=== PATIENT | male | born 1950 | race Hispanic/Latino ===

== ENCOUNTER 2017-08-12 17:59 | Emergency (ER) | payer BC, OTHER ==
[2017-08-12 18:18] VITALS: O2SAT 97
[2017-08-12] MEDS ORDERED: LIDOCAINE 2% 5 ML VIAL ONE (20:18)
[2017-08-12] MEDS ORDERED: CHLORHEXIDINE GLUCONATE 4 % 15 ML UD TOP ONE (20:25)
[2017-08-12] MEDS ORDERED: NEOMYCIN-BACITRACIN-POLYMYXIN 0.9 GM UD TOP ONE (22:27)
--- NOTE | 2017-08-12 22:31 | ED.PDOC ---
History of Present Illness - General Chief Complaint: Laceration Stated Complaint: Laceration to R forearm Time Seen by Provider: 08/12/17 21:57 Source: patient Exam Limitations: no limitations - History of Present Illness Initial Comments: PT WAS PULLING DOWN A PIECE OF STEEL TO CUT AND IT FELL AND SICED HIS R FOREARM. TETANUS UPDATED 4 YR AGO. Timing/Duration: just prior to arrival Severity: moderate Location: extremities Improving Factors: nothing Worsening Factors: nothing Associated Symptoms: denies symptoms Allergies/Adverse Reactions: Allergies NO KNOWN ALLERGY Allergy (Verified 08/12/17 20:04) Home Medications: Ambulatory Orders Amlodipine Besylate 5 mg PO HS 10/16/12 Aspirin [[place] Chewable Low Dose] 81 mg PO AM 10/16/12 Losartan Potassium 100 mg PO HS 10/16/12 Metformin HCl 500 mg PO TID 10/16/12 Metoprolol Tartrate 100 mg PO AM 10/16/12 Triamterene & Hydrochlorothiaz [Maxzide-25] 0.5 tab PO AM 10/16/12 glipiZIDE [Glucotrol] 5 mg PO BIDAC #0 tab 10/17/12 Cephalexin Monohydrate [Keflex] 500 mg PO BID #14 cap 08/12/17 Review of Systems - Review of Systems Constitutional: States: no symptoms reported EENTM: States: no symptoms reported Respiratory: States: no symptoms reported Cardiology: States: no symptoms reported Gastrointestinal/Abdominal: States: no symptoms reported Genitourinary: States: no symptoms reported Musculoskeletal: States: no symptoms reported Skin: States: see HPI, lesions. Denies: rash Neurological: States: no symptoms reported Endocrine: States: no symptoms reported Hematologic/Lymphatic: States: no symptoms reported All other Systems: Reviewed and Negative Past Medical History (General) - Patient Medical History Hx Seizures: No Hx Stroke: No Hx Asthma: No Hx of COPD: No Hx Cardiac Disorders: Yes - Stents Hx Congestive Heart Failure: No Hx Pacemaker: No Hx Hypertension: Yes Hx Diabetes: Yes Hx MRSA: No - Vaccination History Hx Tetanus, Diphtheria Vaccination: Yes Hx Influenza Vaccination: Yes - 2017 Hx Pneumococcal Vaccination: No - Social History Hx Tobacco Use: No Hx Alcohol Use: No Hx Substance Use: No Hx Physical Abuse: No Hx Emotional Abuse: No Family Medical History - Family History Father Living Status: Cause of : old age Physical Exam - Physical Exam General Appearance: Alert, Well Hydrated Eyes, Ears, Nose, Throat Exam: PERRL/EOMI, normal ENT inspection Neck: full range of motion, normal inspection Extremity: normal range of motion, normal capillary refill Neurologic: no motor/sensory deficits, alert, normal mood/affect Skin Exam: warm/dry, normal color Skin Problem Location: upper extremities Skin Character: lesion - R MEDIAL FOREARM Lymphatic: no adenopathy Progress - Progress Progress: 08/12/17 22:29 R FOREARM 2.0 CM LAC, FULL THICKNESS. NIDDM, THUS RX KEFLEX PPX. 08/12/17 22:32 Procedures - Laceration/Wound Repair Right Distal Arm Wound Length (cm): 2.0 Wound's Depth, Shape: superficial - FULL THICKNESS THROUGH SKIN, INTO SUBQ ADIPOSE BUT NOT MUSCLE. Wound Explored: clean Irrigated w/ Saline (cc's): 50 Betadine Prep?: No - HIBICLENZ Anesthesia: 1% Lidocaine Volume Anesthetic (cc's): 7 Wound Debrided: minimal Wound Repaired With: sutures Suture Size/Type: 3:0, nylon Number of Sutures: 1 - RUNNING UNINTERRUPTED Layer Closure?: No Sterile Dressing Applied?: Yes Splint Applied?: No Sling Applied?: No Departure - Departure Clinical Impression: Laceration of right forearm Disposition: Discharge to Home or Self Care Condition: Good Departure Forms: ED Discharge - Pt. Copy, Patient Portal Self Enrollment Diet: resume usual diet Activity: increase activity as tolerated Referrals: TAMARA KNAPP [Primary Care Provider] - 1-2 Weeks Prescriptions: Cephalexin Monohydrate [Keflex] 500 mg PO BID #14 cap Home Medications: Ambulatory Orders Amlodipine Besylate 5 mg PO HS 10/16/12 Aspirin [[place] Chewable Low Dose] 81 mg PO AM 10/16/12 Losartan Potassium 100 mg PO HS 10/16/12 Metformin HCl 500 mg PO TID 10/16/12 Metoprolol Tartrate 100 mg PO AM 10/16/12 Triamterene & Hydrochlorothiaz [Maxzide-25] 0.5 tab PO AM 10/16/12 glipiZIDE [Glucotrol] 5 mg PO BIDAC #0 tab 10/17/12 Cephalexin Monohydrate [Keflex] 500 mg PO BID #14 cap 08/12/17 Additional Instructions: Please see your doctor in 10 - 12 days for suture removal. Please cleanse twice per day with soap and water, apply bacitracin antibiotic ointment, and cover with a band aid.
[2017-08-12 22:47] VITALS: BP 154/78; TEMP 98.2
== END 2017-08-12 22:47 | disposition home or self-care (01) ==
LOC: ER 17:59
DX: S51.811A Laceration without foreign body of right forearm, initial encounter (principal); I10 Essential (primary) hypertension; E11.9 Type 2 diabetes mellitus without complications; Z95.5 Presence of coronary angioplasty implant and graft; Z79.82 Long term (current) use of aspirin; Z79.899 Other long term (current) drug therapy; W45.8XXA Other foreign body or object entering through skin, initial encounter; Y93.89 Activity, other specified; Y92.9 Unspecified place or not applicable

== ENCOUNTER → 2017-12-12 | Outpatient (CLI) | payer BC ==
--- NOTE | 2017-12-12 10:48 | US ---
EXAM DESCRIPTION: Renal: Ultrasound. CLINICAL HISTORY: CHRONIC KIDNEY DISEASE, STAGE3 COMPARISON: Bilateral renal arterial Doppler evaluation on the same visit. TECHNIQUE: Transcutaneous scanning: Two-dimensional and Doppler modes. FINDINGS: Right kidney measures 9.6 x 5.4 x 5.2 cm; mid-renal cortical thickness normal . Minimally increased No hydronephrosis No echogenic stones. Mildly lobulated contour of the kidney with no perinephric fluid. Normal vascularity. Proximal ureter not visualized. Left kidney measures 9.6 x 5.2 x 4.9 cm; mid-renal cortical thickness normal. Minimally increased No hydronephrosis. No echogenic stones. Mildly lobulated contour of the kidney with no perinephric fluid. Normal vascularity.. Proximal ureter not visualized. Urinary bladder was visualized. Prevoid volume 61.8 mL. Prostate gland impressing on the base of the bladder measures 3.6 x 3.8 x 3.5 cm heterogeneous low echoes. Ureteral jet in the bladder seen bilaterally by Doppler. No post void volume. Abdominal aorta diameter(cm): Proximal - 2.0 Mid - 1.7 Distal - 1.6. IMPRESSION: 1. Bilateral kidneys minimally small with normal cortical thickness and mild increased echogenicity. Lobulated contours bilaterally. No hydronephrosis or perinephric fluid. Ureters not seen. 2. Urinary bladder contains small volume. Bilateral ureteral jets were detected in the bladder. Prostate gland with minimal impression on the base of the urinary bladder. Patient unable to void. 3. No abdominal aortic aneurysm. Electronically signed by: Brian Pinto MD 12/12/2017 10:46 AM CDT
== END ==
LOC: US 07:54
PROVIDERS: ATTEND Internal Medicine
DX: N18.3 Chronic kidney disease, stage 3 (moderate) (principal)

== ENCOUNTER → 2019-01-20 | Outpatient (CLI) | payer BC ==
--- NOTE | 2019-01-21 15:43 | US ---
EXAM DESCRIPTION: Carotid Duplex: ULTRASOUND. CLINICAL HISTORY: 68 years Male CAROTID BRUIT COMPARISON: None. TECHNIQUE: Transcutaneous scanning utilizing joshi-scale and Doppler modes to evaluate the bilateral carotid systems and vertebral arteries. Percentage of diameter of stenosis or no stenosis recorded will be based upon NASCET criteria. FINDINGS: Peak systolic/end diastolic (CM-Sec) CCA Right 98/5 Left 78/10. ICA Right proximal 110/19, distal 71/17. Left proximal 63/18, Distal 77/11. Vertebral Right 49/7 Left 44/14. ECA (PS Only) Right 178 left 100. ICA/CCA peak systolic ratio: Right 1.1 Left 1.0 ICA/CCA end diastolic ratio: Right 4.0 Left 1.1 Vertebral arteries: antegrade flow. Comments Comments: Atherosclerotic calcification bilateral carotid bifurcations. Mid right bulb: Area stenosis 38%, diameter stenosis 30%. Left mid CCA bulb: Area stenosis 28%, diameter stenosis 20%. IMPRESSION: 1. Doppler evaluation of the bilateral carotid systems and vertebral arteries shows 50-69% stenosis in the right ICA but this is not concordant with diameter or area stenosis measured on grayscale technique. 2. Moderate amount of plaque seen in the carotid arteries bilaterally. Bilateral vertebral arteries showed antegrade-cephalad flow. Electronically signed by: Brian Pinto MD 01/21/2019 3:41 PM PROFESSOR OF ART HISTORY
== END ==
LOC: US 15:46
PROVIDERS: ATTEND Emergency Medicine
DX: I65.23 Occlusion and stenosis of bilateral carotid arteries (principal); R09.89 Other specified symptoms and signs involving the circulatory and respiratory systems

== ENCOUNTER 2020-02-17 06:31 | Day surgery (SDC) | payer OTHER ==
[2020-02-17] MEDS ORDERED: SODIUM CHLORIDE 0.9% 50 ML VIAL INJ ONE (06:32)
[2020-02-17] MEDS ORDERED: PROPOFOL 200 MG/20 ML VIAL IV ONE (06:32)
[2020-02-17] MEDS ORDERED: PHENYLEPHRINE INJ 1ML 10 MG/ML VIAL IV ONE (06:32)
[2020-02-17] MEDS ORDERED: MAGNESIUM SULFATE INJ 1 GM/2 ML VIAL IVPB ONE (06:32)
[2020-02-17] MEDS ORDERED: LIDOCAINE 1% 10 ML VIAL INJ ONE (06:32)
[2020-02-17] MEDS ORDERED: DEXAMETHASONE INJ 10 MG/ML VIAL IV ONE (06:32)
[2020-02-17] MEDS ORDERED: LACTATED RINGERS 1,000 ML ONE (06:39)
[2020-02-17] MEDS ORDERED: BUPIVACAINE 0.5% W/EPI 30 ML VIAL INJ ONE ×2 (07:39→08:59)
[2020-02-17] MEDS ORDERED: fentaNYL CITRATE INJ 50 MCG/ML 2 ML AMP ONE (08:49)
[2020-02-17] MEDS ORDERED: SUGAMMADEX SODIUM 200 MG/2 ML VIAL IV ONE (08:49)
[2020-02-17] MEDS ORDERED: FAMOTIDINE INJ 10 MG/ML VIAL IV ONE (08:50)
[2020-02-17] MEDS ORDERED: ROCURONIUM BROMIDE 10 MG/ML VIAL ONE (08:50)
--- NOTE | 2020-02-17 10:30 | OP ---
DATE OF PROCEDURE: 02/17/20 PREOPERATIVE DIAGNOSIS: 1. Chronic cholecystitis. 2. Abdominal pain. 3. Liver mass. POSTOPERATIVE DIAGNOSIS: 1. Chronic cholecystitis. 2. Abdominal pain. 3. Liver mass. PROCEDURE: 1. Laparoscopic cholecystectomy. SURGEON: Shahid Medel MD. ANESTHESIA: General, Everett Chin CRNA, and local. FINDINGS: The gallbladder showed evidence of chronic inflammation. Anatomy is clearly visualized through the triangle of Calot. The liver showed mild scarring, abnormal appearance, but no mass was seen from the surface. A biopsy could not be performed. Intraoperative laparoscopic ultrasound not available. No evidence of peritoneal mass, no evidence of retroperitoneal mass, etc. INDICATION: This 69-year-old man presented with abdominal pain with gallstones. He is losing weight, unable to eat. He incidentally was also found to have a mass in the left lobe of his liver suspicious for cancer. It has not been biopsied. It seems like the most pressing is the gallbladder to allow him to eat normally while he battles the mass, potentially cancer. He was consented. PROCEDURE: The patient was brought to the Operating Suite in supine position. General anesthesia was induced. The patient was prepped and draped in sterile fashion. Marcaine 0.5% with epinephrine was used at all incision sites. While maintaining upward traction, a viviane was made near the base of the umbilicus. Veress needle was introduced. There was free flow of fluid into the peritoneal cavity which was insufflated to an appropriate level with CO2 gas. The 5 mm trocar was placed followed by the camera. There was no evidence of bleeding or bowel injury. The patient was positioned and subxiphoid and lateral ports were placed under direct visualization without difficulty. The liver surface was slightly irregular, not quite cirrhotic, but appeared scarred here and there, slightly fatty. There was no visible nor palpable mass with the instruments on the left lobe of the liver or throughout, so there was nothing we could biopsy at this point and did not want to do a blind biopsy, so we will plan on doing this under image guidance. The gallbladder fundus was easily identified. It was grasped and retracted superiorly and laterally. The infundibulum was grasped. The infundibular structures were dissected free until the duct and artery were clearly visualized through the triangle of Calot. The duct was triply ligated as was the artery. The gallbladder was then dissected off the fossa in toto and removed from the subxiphoid incision without spillage. There was some oozing in the fossa throughout. This was controlled easily. The majority was down near the base of the fossa, but with slight high level cautery, this was controlled. No evidence of significant vessel bleeding. At that point, the liver remained hemostatic under low pressure. The subxiphoid incision was then closed with 0 Vicryl using the suture passer. It was airtight and non-bleeding. The remaining trocars were removed under direct visualization. The wounds were then closed with Monocryl. Dressings were applied. The patient was awakened and taken to Recovery in stable condition to be discharged. #[id number] [facility]
[2020-02-17 11:32] VITALS: BP 147/68; TEMP 96.3; O2SAT 97
== END 2020-02-17 11:29 | disposition home or self-care (01) ==
LOC: AMB 06:31
PROVIDERS: ATTEND Surgery
DX: K80.10 Calculus of gallbladder with chronic cholecystitis without obstruction (principal); R16.0 Hepatomegaly, not elsewhere classified; E11.9 Type 2 diabetes mellitus without complications; I10 Essential (primary) hypertension; I25.10 Atherosclerotic heart disease of native coronary artery without angina pectoris; Z79.82 Long term (current) use of aspirin; Z79.899 Other long term (current) drug therapy
CPT/HCPCS: 00790; 36416; 47562; 82948; A4216; J1100; J3010; J3475; J3490; J7120

== ENCOUNTER → 2020-03-07 | Outpatient (CLI) | payer OTHER ==
--- NOTE | 2020-03-07 13:37 | US ---
EXAM DESCRIPTION: Biopsy/Needle Guidance: Ultrasound. CLINICAL HISTORY: HEPATOMEGALY. Liver lesion. COMPARISON: CT scan abdomen [facility] January 2020. TECHNIQUE: Procedure performed by Dr. Pinto. Procedure was explained to the patient with risks and benefits. Patient gave verbal and written consent. Timeout was performed for patient identification, identification of procedure, and identification of body part involved. Supine on ultrasound table abdomen exposed. Transcutaneous scanning: Two-dimensional mode, prior to the procedure to localize the left lobe liver mass. Sterile preparation and draping. Local skin anesthetic, prior to incision, made just inferior and to the right of the xiphoid process. 18-gauge IroFitty dual stage 11 cm core biopsy system was utilized also using the 17-gauge 13.5 cm trocar and cannula. 3.5 samples were obtained of the liver mass. Minimal hemorrhage was stopped with pressure dressing. No immediate complications. Patient discharged home after 30 min observation in good condition, accompanied by family member. Samples were placed in formalin FINDINGS: In the left liver, a mostly hypoechoic complex appearing mass is visualized approximately 2 cm below the anterior subcapsular surface. Posterior mass is difficult to visualize. The mass measures approximately 7.1 x 4.9 cm in the axial plane. Images taken during the procedure demonstrate the 17-gauge cannula in the peripheral mass, and the 18-gauge biopsy system deployed through the cannula, and into the mass. IMPRESSION: Successful, ultrasound-guided needle core biopsy of left liver mass, performed by Dr. Pinto. Adequate samples were obtained. The samples will be examined at a remote pathology facility. Electronically signed by: Brian Pinto MD 03/07/2020 1:35 PM PREMIUM CANCELLATION CLERK
== END ==
LOC: US 08:10
PROVIDERS: ATTEND Surgery
DX: C22.9 Malignant neoplasm of liver, not specified as primary or secondary (principal)

== ENCOUNTER 2020-03-31 05:42 | Day surgery (SDC) | payer OTHER ==
[2020-03-31] MEDS ORDERED: PROPOFOL 200 MG/20 ML VIAL IV ONE (07:00)
[2020-03-31] MEDS ORDERED: LIDOCAINE 1% 10 ML VIAL INJ ONE (07:00)
[2020-03-31] MEDS ORDERED: LACTATED RINGERS 1,000 ML ONE (07:04)
--- NOTE | 2020-03-31 10:06 | OP ---
DATE OF PROCEDURE: 03/31/20 PREOPERATIVE DIAGNOSIS: 1. Liver cancer, uncertain primary. 2. Screening colonoscopy. POSTOPERATIVE DIAGNOSIS: 1. Two colon polyps, one 3 to 4 mm, one 2 mm. 2. Diverticulosis. 3. No evidence for primary colon cancer. PROCEDURE: 1. Colonoscopy. SURGEON: Shahid Medel MD COMPLICATIONS: None. ESTIMATED BLOOD LOSS: None. PLAN: Discharge. INDICATION: This is a gentleman who I recently took out his gallbladder for abdominal pain. He seems to have improved from that. He also has a liver mass, however, that is being evaluated and soon will be treated, likely a primary hepatic malignancy, but we are screening his colon to look for a primary colon lesion as well. PROCEDURE: The patient was brought to the Operating Suite in lateral position. General anesthesia was induced. The colonoscope was inserted through the rectum without difficulty and into the cecum as identified by the appendiceal orifice and ileocecal valve. The prep was adequate. The mucosal surfaces appeared normal. Upon withdrawal, one polyp was identified in the mid transverse colon. This was 2 mm and excised completely. When we got down to approximately 40 in the mid descending colon, we found a more substantial polyp about 4 mm. It was excised completely with a cold snare and retrieved. The remainder of the exam was normal but for some moderate diverticulosis. He tolerated the procedure and was taken to Recovery to be discharged. #[id number] cc: DO NUBIA Arambula
[2020-03-31 10:22] VITALS: BP 157/61; TEMP 97.1; O2SAT 99
== END 2020-03-31 10:24 | disposition home or self-care (01) ==
LOC: AMB 05:42
PROVIDERS: ATTEND Surgery
DX: Z12.11 Encounter for screening for malignant neoplasm of colon (principal); D12.3 Benign neoplasm of transverse colon; K57.30 Diverticulosis of large intestine without perforation or abscess without bleeding; C22.8 Malignant neoplasm of liver, primary, unspecified as to type; E11.9 Type 2 diabetes mellitus without complications; I25.10 Atherosclerotic heart disease of native coronary artery without angina pectoris; Z79.82 Long term (current) use of aspirin; Z79.899 Other long term (current) drug therapy
CPT/HCPCS: 00812; 36416; 45385; 82948; J3490; J7120